=== PATIENT | female | born 1960 | race Caucasian/White ===

== ENCOUNTER 2019-08-16 23:39 | Inpatient (IN) | payer MEDICARE, OTHER ==
[~2019-08-16] VITALS: Ht 165.1 cm; Wt 81.0 kg
[2019-08-17 00:10] LABS: BASOPHILS # (AUTO) 0.2 X10'3 (0-0.2); BASOPHILS % (AUTO) 1.6 % (0-1); EOSINOPHILS # (AUTO) 0.3 X10'3 (0-0.9); EOSINOPHILS % (AUTO) 1.8 % (0-6); HEMATOCRIT 43.9 % (35.0-45.0); HEMOGLOBIN 15.1 g/dl (12.0-16.0); LYMPHOCYTES # (AUTO) 2.8 X10'3 (1.1-4.8); LYMPHOCYTES % (AUTO) 17.8 % (21-51); MEAN CORPUSCULAR HEMOGLOBIN 29.6 PG (27.0-31.0); MEAN CORPUSCULAR HGB CONC 34.4 g/dL (33.0-36.5); MEAN CORPUSCULAR VOLUME 86.1 FL (78-98); MEAN PLATELET VOLUME 8.7 FL (7.4-10.4); MONOCYTES # (AUTO) 0.8 X10'3 (0-0.9); MONOCYTES % (AUTO) 4.9 % (2-12); NEUTROPHILS # (AUTO) 11.6 X10'3 (1.8-7.7); NEUTROPHILS % (AUTO) 73.9 % (42-75); PLATELET COUNT 213 X10'3 (140-440); RED CELL DISTRIBUTION WIDTH 13.1 % (11.5-14.5); WHITE BLOOD COUNT 15.7 X10'3 (4.5-11.0)
[2019-08-17] MEDS ORDERED: LIDOcaine Viscous 15ml cup MM ONE (00:15)
[2019-08-17] MEDS ORDERED: famotidine 20mg tablet PO ONE (00:15)
[2019-08-17] MEDS ORDERED: mag hydrox/Alum hydrox/simeth 30ml oral suspension PO ONE (00:15)
[2019-08-17] MEDS ORDERED: aspirin 325mg tablet PO ONE (00:15)
[2019-08-17 00:24] LABS: ALANINE AMINOTRANSFERASE 32 U/L (12-78); ALBUMIN 3.9 G/DL (3.4-5.0); ALBUMIN/GLOBULIN RATIO 1.3 (1.1-1.5); ALKALINE PHOSPHATASE 91 IU/L (46-116); ANION GAP 7 (8-16); ASPARTATE AMINO TRANSFERASE 25 U/L (10-37); BILIRUBIN,TOTAL 1.6 MG/DL (0.1-1.0); BLOOD UREA NITROGEN 23 MG/DL (7-18); BUN/CREATININE RATIO 18.1 (6.6-38.0); CALCIUM 9.6 MG/DL (8.5-10.1); CHLORIDE 99 MMOL/L (99-107); CREATININE 1.27 MG/DL (0.40-0.90); GLUCOSE 159 MG/DL (70-104); POTASSIUM 3.6 MMOL/L (3.5-5.1); SODIUM 136 MMOL/L (135-145); TOTAL CARBON DIOXIDE 29.9 MMOL/L (24-32); TOTAL PROTEIN 6.9 G/DL (6.4-8.2); eGFR 43 ML/MIN
[2019-08-17] MEDS ORDERED: iohexol 350MG/ML 100ml bottle IV ONE (00:39)
[2019-08-17] MEDS ORDERED: normal saline 1000ml 1,000 ML IV ONE ×2 (00:40→02:10)
--- NOTE | 2019-08-17 01:51 | NUR ---
PT PULSE JUMPED TO 150-160S. MD LORENZANA AWARE. NEW ORDERS.
[2019-08-17] MEDS ORDERED: diltiazem 5mg/ml 5ml inj. IV ONE ×2 (01:55→02:05)
[2019-08-17] MEDS ORDERED: nitroGLYCERIN 0.4mg SUBLingual tab SL PRN (01:55)
[2019-08-17] MEDS ORDERED: heparin 10,000 units/1 ML INJ IV ONE (01:55)
[2019-08-17] MEDS ORDERED: diltiazem-D5W 125mg/125ml 125 ML IV SCH (02:00)
[2019-08-17] MEDS: heparin 10,000 units/1 ML INJ IV PRN ×2 (02:06→17:49)
[2019-08-17] MEDS ORDERED: nitroGLYCERIN 1gm ointment UD TP ONE (02:10)
[2019-08-17] MEDS ORDERED: fentaNYL/PF 50MCG/1 ML 2ML syringe IV ONE (02:15)
[2019-08-17] MEDS: heparin 25,000 UNIT/250ml bag 250 ML IV SCH ×2 (02:24→17:52)
[2019-08-17] MEDS ORDERED: etomidate 2mg/ml inj. IV ONE ×2 (02:40)
[2019-08-17 02:47] LABS: PARTIAL THROMBOPLASTIN TIME 27 SECONDS (22-32)
[2019-08-17] MEDS: diltiazem-NS 100mg/100ml 100 ML IV SCH ×2 (03:03→17:36)
--- NOTE | 2019-08-17 03:04 | NUR ---
2 CARDIOVERSIONS PERFORMED: 1ST SHOCK AT 0256 AND 2ND SHOCK AT 0258. PT STILL IN AFIB PER
[2019-08-17] MEDS ORDERED: ALPR1TAB2 PO (03:15)
[2019-08-17] MEDS ORDERED: HYDR25TA4 PO (03:16)
[2019-08-17] MEDS ORDERED: LISI40TA4 PO (03:16)
--- NOTE | 2019-08-17 03:31 | NUR ---
MAYCOL (PT NIECE) #: [phone] SIENA (PT DAUGHTER) #: [phone]
[2019-08-17] MEDS ORDERED: digoxin 250mcg/ml 2ml ampule IV ONE (03:35)
[2019-08-17] MEDS ORDERED: calcium chloride inj. 1,000 MG in normal saline 100ml IV soln 90 ML IV ONE (03:35)
--- NOTE | 2019-08-17 04:03 | NUR ---
VERIFIED CALCIUM CHLORIDE IV COMPATIBILITY WITH DILTIAZEM ON MICROMEDEX. ANNELISE MATHEW CONFIRMED.
[2019-08-17] MEDS ORDERED: mag hydrox/Alum hydrox/simeth 30ml oral suspension PO PRN (04:25)
[2019-08-17] MEDS ORDERED: ondansetron/PF 4mg/2ml inj IV PRN (04:25)
[2019-08-17] MEDS ORDERED: magnesium hydroxide 30ml (MOM) UD suspension PO PRN (04:25)
[2019-08-17] MEDS ORDERED: acetaminophen 325mg tablet PO PRN (04:25)
[2019-08-17] MEDS: normal saline 1000ml 1,000 ML IV SCH (05:20)
--- NOTE | 2019-08-17 05:50 | NUR ---
HOSPITALIST VÍCTOR NOTIFIED OF PT CONTINUED ELEVATED TROPONIN OF 0.31. NO NEW ORDERS AT THIS TIME.
[2019-08-17] MEDS: ALPRAZolam 0.5mg tablet PO SCH (08:05)
[2019-08-17 10:30] VITALS: BP 109/52
[2019-08-17 11:00] VITALS: BP 109/49
[2019-08-17 13:00] VITALS: BP 106/65
[2019-08-17 15:29] LABS: CLARITY,URINE CLEAR (Clear); COLOR,URINE YELLOW (Yellow); GLUCOSE, URINE NEGATIVE (Neg); KETONES,URINE NEGATIVE (Neg); LEUKOCYTE ESTERASE ,URINE NEGATIVE (Neg); NITRITES, URINE NEGATIVE (Neg); OCCULT BLOOD,URINE NEGATIVE (Neg); PROTEIN,URINE NEGATIVE (Neg); UROBILINOGEN,URINE 0.2 E.U/dL (0.2-1.0)
[2019-08-17 15:31] LABS: UA COLLECTION TYPE NON-SPECIFIED
[2019-08-17 15:35] LABS: URINE AMPHETAMINE SCREEN POSITIVE (Neg); URINE BARBITUATE SCREEN NEGATIVE (Neg); URINE BENZODIAZEPINES SCREEN POSITIVE (Neg); URINE CANNABINOID SCREEN NEGATIVE (Neg); URINE COCAINE SCREEN NEGATIVE (Neg); URINE METHADONE SCREEN NEGATIVE (Neg); URINE OPIATE SCREEN POSITIVE (Neg); URINE PHENCYCLIDINE SCREEN NEGATIVE (Neg)
[2019-08-17 15:44] VITALS: BP_SYST 109; BP_SYST 99; BP_DIAS 49; BP_DIAS 61
[2019-08-17 18:00] VITALS: BP 118/67
--- NOTE | 2019-08-17 18:13 | NUR ---
Documented VS for primary RN at this time.
[2019-08-17 22:00] VITALS: BP 116/69
[2019-08-18 00:39] LABS: BASOPHILS # (AUTO) 0.1 X10'3 (0-0.2); BASOPHILS % (AUTO) 0.6 % (0-1); EOSINOPHILS # (AUTO) 0.3 X10'3 (0-0.9); EOSINOPHILS % (AUTO) 3.5 % (0-6); HEMATOCRIT 36.3 % (35.0-45.0); HEMOGLOBIN 12.6 g/dl (12.0-16.0); LYMPHOCYTES # (AUTO) 3.7 X10'3 (1.1-4.8); LYMPHOCYTES % (AUTO) 38.2 % (21-51); MEAN CORPUSCULAR HEMOGLOBIN 30.2 PG (27.0-31.0); MEAN CORPUSCULAR HGB CONC 34.6 g/dL (33.0-36.5); MEAN CORPUSCULAR VOLUME 87.3 FL (78-98); MEAN PLATELET VOLUME 9.3 FL (7.4-10.4); MONOCYTES # (AUTO) 0.6 X10'3 (0-0.9); MONOCYTES % (AUTO) 6.3 % (2-12); NEUTROPHILS % (AUTO) 51.4 % (42-75); PLATELET COUNT 170 X10'3 (140-440); RED BLOOD COUNT 4.16 X10'6 (4.20-5.60); RED CELL DISTRIBUTION WIDTH 12.8 % (11.5-14.5); WHITE BLOOD COUNT 9.8 X10'3 (4.5-11.0)
[2019-08-18 00:56] LABS: ALANINE AMINOTRANSFERASE 31 U/L (12-78); ALBUMIN 3.1 G/DL (3.4-5.0); ALBUMIN/GLOBULIN RATIO 1.2 (1.1-1.5); ALKALINE PHOSPHATASE 70 IU/L (46-116); ANION GAP 6 (8-16); ASPARTATE AMINO TRANSFERASE 24 U/L (10-37); BILIRUBIN,TOTAL 1.2 MG/DL (0.1-1.0); BLOOD UREA NITROGEN 15 MG/DL (7-18); BUN/CREATININE RATIO 13.4 (6.6-38.0); CALCIUM 8.5 MG/DL (8.5-10.1); CHLORIDE 106 MMOL/L (99-107); CREATININE 1.12 MG/DL (0.40-0.90); GLUCOSE 106 MG/DL (70-104); POTASSIUM 3.7 MMOL/L (3.5-5.1); SODIUM 140 MMOL/L (135-145); TOTAL CARBON DIOXIDE 28.1 MMOL/L (24-32); TOTAL PROTEIN 5.7 G/DL (6.4-8.2); eGFR 49 ML/MIN
[2019-08-18 02:00] VITALS: BP 142/74
[2019-08-18] MEDS: heparin 10,000 units/1 ML INJ IV PRN (02:43)
[2019-08-18] MEDS: heparin 25,000 UNIT/250ml bag 250 ML IV SCH ×3 (02:48→10:21)
--- NOTE | 2019-08-18 06:17 | NUR ---
Problems reprioritized. Patient report given, questions answered & plan of care reviewed with QUINCY Page. Patient stable at shift change
[2019-08-18] MEDS: ALPRAZolam 0.5mg tablet PO SCH (09:05)
[2019-08-18] MEDS: diltiazem-NS 100mg/100ml 100 ML IV SCH (11:07)
[2019-08-18] MEDS ORDERED: diltiazem 30mg tablet PO ONE (11:50)
[2019-08-18] MEDS: apixaban 5mg tablet PO SCH ×2 (15:37→20:06)
[2019-08-18 18:00] VITALS: BP 141/79
--- NOTE | 2019-08-18 18:20 | NUR ---
Patient in room PCU 3023X I have received report from QUINCY Gonzalez and had the opportunity to ask questions and assume patient care. Patient denies CP, dizziness, SOB, n/v, and rated pain 0/10. Heparin is still running at 13 units
[2019-08-18] MEDS: diltiazem 30mg tablet PO SCH (20:06)
[2019-08-18 22:00] VITALS: BP 133/80
[2019-08-19 02:00] VITALS: BP 120/68
[2019-08-19] MEDS: diltiazem 30mg tablet PO SCH ×2 (02:26→07:41)
[2019-08-19] MEDS: normal saline 1000ml 1,000 ML IV SCH (03:56)
[2019-08-19 06:04] LABS: BASOPHILS % (AUTO) 0.2 % (0-1); EOSINOPHILS # (AUTO) 0.3 X10'3 (0-0.9); EOSINOPHILS % (AUTO) 2.8 % (0-6); HEMATOCRIT 36.1 % (35.0-45.0); HEMOGLOBIN 12.6 g/dl (12.0-16.0); LYMPHOCYTES # (AUTO) 1.9 X10'3 (1.1-4.8); LYMPHOCYTES % (AUTO) 18.8 % (21-51); MEAN CORPUSCULAR HEMOGLOBIN 30.5 PG (27.0-31.0); MEAN CORPUSCULAR VOLUME 87.3 FL (78-98); MEAN PLATELET VOLUME 9.1 FL (7.4-10.4); MONOCYTES # (AUTO) 0.7 X10'3 (0-0.9); MONOCYTES % (AUTO) 6.7 % (2-12); NEUTROPHILS # (AUTO) 7.4 X10'3 (1.8-7.7); NEUTROPHILS % (AUTO) 71.5 % (42-75); PLATELET COUNT 174 X10'3 (140-440); RED BLOOD COUNT 4.13 X10'6 (4.20-5.60); RED CELL DISTRIBUTION WIDTH 12.7 % (11.5-14.5); WHITE BLOOD COUNT 10.3 X10'3 (4.5-11.0)
[2019-08-19 06:14] LABS: ALANINE AMINOTRANSFERASE 27 U/L (12-78); ALBUMIN 2.8 G/DL (3.4-5.0); ALKALINE PHOSPHATASE 69 IU/L (46-116); ANION GAP 7 (8-16); ASPARTATE AMINO TRANSFERASE 18 U/L (10-37); BILIRUBIN,TOTAL 1.1 MG/DL (0.1-1.0); BLOOD UREA NITROGEN 13 MG/DL (7-18); BUN/CREATININE RATIO 12.6 (6.6-38.0); CALCIUM 8.3 MG/DL (8.5-10.1); CHLORIDE 105 MMOL/L (99-107); CREATININE 1.03 MG/DL (0.40-0.90); GLUCOSE 109 MG/DL (70-104); POTASSIUM 3.6 MMOL/L (3.5-5.1); SODIUM 139 MMOL/L (135-145); TOTAL CARBON DIOXIDE 26.9 MMOL/L (24-32); TOTAL PROTEIN 5.7 G/DL (6.4-8.2); eGFR 54 ML/MIN
--- NOTE | 2019-08-19 06:15 | NUR ---
Problems reprioritized. Patient report given, questions answered & plan of care reviewed with QUINCY Carter. Patient stable at shift change
--- NOTE | 2019-08-19 06:28 | NUR ---
Patient in room PCU 3023. I have received report from Lucien MATHEW and had the opportunity to ask questions and assume patient care.
[2019-08-19 07:00] VITALS: BP 119/69
[2019-08-19] MEDS: ALPRAZolam 0.5mg tablet PO SCH (07:41)
[2019-08-19] MEDS: apixaban 5mg tablet PO SCH (07:41)
[2019-08-19] MEDS ORDERED: DILT-36 PO (11:02)
[2019-08-19] MEDS ORDERED: APIX5TAB3 PO (11:02)
--- NOTE | 2019-08-19 12:52 | NUR ---
Patient discharged at 1245 home with boyfriend. Discharge packet was sent home after reviewing and being signed by patient. Rx was faxed to pharmacy, PIV was removed with cannula intact, and telemetry was d/c'd. Patient belongings sent home and patient was wheeled down by staff and left via private vehicle with boyfriend.
== END 2019-08-19 12:46 | disposition home or self-care (01) | DRG 282 ==
LOC: ER 23:40 → ED HOLD 08-17 04:22 → PCU 3S 08-17 07:43
PROVIDERS: ADMIT Internal Medicine; ATTEND Family Medicine
DX: I48.0 Paroxysmal atrial fibrillation (principal); I21.A1 Myocardial infarction type 2; G89.29 Other chronic pain; I10 Essential (primary) hypertension; Z88.1 Allergy status to other antibiotic agents; Z88.8 Allergy status to other drugs, medicaments and biological substances; F32.9 Major depressive disorder, single episode, unspecified; F41.9 Anxiety disorder, unspecified; F15.10 Other stimulant abuse, uncomplicated; Z87.891 Personal history of nicotine dependence; Z83.3 Family history of diabetes mellitus
CPT/HCPCS: 36415; 71045; 71275; 80053; 80305; 81003; 83880; 84484; 85025; 85610; 85730; 87081; 92960; 93005; 93306; 94760; 96374; 96375; 99291; G0378; J1160; J1644; J2405; J3010; J3490; J7030; Q9967